=== PATIENT | female | born 1985 | race Caucasian/White ===

== ENCOUNTER → 2017-04-10 12:35 | Outpatient (CLI) | payer SELFPAY | PROVIDERS: Visit Provider Otolaryngology Otolaryngology/Facial Plastic Surgery | DX: Z01.812 Encounter for preprocedural laboratory examination (principal) ==

== ENCOUNTER 2017-05-09 00:15 | Emergency (ER) | payer BC, SELFPAY ==
[2017-05-09 00:15] VITALS: BP 155/99; PULSE 83; RESP 16; TEMP 36.1; O2SAT 100; BMI 26.4
--- NOTE | 2017-05-09 01:24 | EKG12_ITS ---
Test Reason : CP Blood Pressure : / mmHG Vent. Rate : 069 BPM Atrial Rate : 069 BPM P-R Int : 122 ms QRS Dur : 078 ms QT Int : 396 ms P-R-T Axes : 019 026 028 degrees QTc Int : 424 ms Normal sinus rhythm Normal ECG Confirmed by LAKESHIA GARCIA ([id number]), design editor DONA FRANCIS ([id number]) on 05/10/2017 2:51:55 PM Referred By: DONNA Confirmed By:LAKESHIA GARCIA
--- NOTE | 2017-05-09 01:24 | RAD_ITS ---
STUDY: X-RAY CHEST REASON FOR EXAM: Female, 31 years old. Epigastric and lower abdominal pain. Chest pain. TECHNIQUE: PA and lateral chest. COMPARISON: None. FINDINGS: The lungs are clear and expanded. There is no demonstrated pleural abnormality. Normal size heart. Normal mediastinum and netta. Normal visualized pulmonary arteries. Normal visualized aortic arch and descending thoracic aorta. Convex right lower thoracic curvature. Normal visualized ribs, clavicles, and shoulders. There is no demonstrated abnormality of the visualized soft tissue structures of the upper abdomen. RAD/Chest PA and Lateral IMPRESSION: No acute cardiopulmonary disease. Convex right thoracic curvature. Electronically Signed: Gilbert Toure MD at 2:32 EST , Service support ,
--- NOTE | 2017-05-09 01:38 | NURSING ---
NO OLD EKG'S IN MUSE
[2017-05-09] MEDS: Acetaminophen 500 MG Tablet 1000 MG PO (02:07)
[2017-05-09 02:17] LABS: Internal QC Validated? YES +Cl - CLEAR BKGD; Pregnancy, Urine Negative Negative
--- NOTE | 2017-05-09 02:36 | ED.VISSUMM ---
- ER Visit Summary Date of Service: 05/09/17 Chief Complaint: Chest pain History of Present Illness: The patient is a 31 F intermittent chest pain over the past 2 days. No radicular symptoms. No dyspnea. States recovering from a upper respiratory infection with mild cough. No fevers no chills. Also states that upper abdominal pain for the past 2-3 weeks. Sometimes pain worse with food. Currently pain resolved. No nausea, vomiting, diarrhea. No urinary symptoms. Last menstrual period was on the third. Denies any NSAID therapy. No recent travel, surgeries, or immobilizations. No history of PE or DVT. Physical Examination: General: Alert and oriented ?3, no acute distress HEENT: Normocephalic, atraumatic. Moist mucosa membranes Neck: supple, nontender. Cardiovascular: Regular rate and rhythm, no murmurs Respiratory: Normal breath sounds, symmetric, no distress Abdomen: Soft, nontender, nondistended. Negative Maldonado's or McBurney's tenderness. Extremities: Nontender, no edema, pulses intact ?4 Neuro: no focal neurological deficits. Test Results: EKG: Sinus rate of [address] or T-wave changes. Chest x-ray negative hCG negative Emergency Department Course and Treatment: Patient nontoxic, currently no abdominal pain. HCG was negative. With her chest complaints EKG obtained was normal. Chest x-ray negative. PERC criteria negative. She was given Tylenol, reevaluation symptoms were improving. Discussed atypical symptoms this time. She use Tylenol as needed. She will monitor symptoms and follow-up with her PCP. She return if any worsening symptoms. Treatment Plan: [] Disposition: Discharge Impression: 1. Atypical chest pain 2. Nonspecific abdominal pain - resolved This note was generated with [employer]ensor[employer] dictation software. It may contain incorrect words, spelling, and punctuation that were not noted in review of the chart prior to signing ED Disposition - Plan for ED Patient: Disposition: Home or Assisted Living Chief Complaint: Abd Pain Diagnosis: Atypical chest pain, Nonspecific abdominal pain Instructions: ED Chest Pain Atypical Unkn Cause, Abdominal Pain Referrals: Care Physician,No Primary [Primary Care Provider] - Nyasia Jane [NON-STAFF] - 3-5 Days if not improving
[2017-05-09 02:52] VITALS: BP 154/87; PULSE 78; RESP 16; O2SAT 99
== END 2017-05-09 02:53 | disposition home or self-care (01) ==
PROVIDERS: Emergency Provider Emergency Medicine
DX: R07.89 Other chest pain (principal); R10.10 Upper abdominal pain, unspecified; R05 Cough
CPT/HCPCS: 71046; 81025; 93005; 99283

== ENCOUNTER 2017-08-30 10:13 | Day surgery (SDC) | payer BC, SELFPAY ==
[2017-08-30] VITALS (8 sets, daily range): BP systolic 102–121; BP diastolic 67–87; PULSE 66–81; RESP 16–18; TEMP 36.2–36.7; O2SAT 94–100; BMI 27.5
[2017-08-30 10:35] LABS: Internal QC Validated? YES +Cl - CLEAR BKGD; Pregnancy, Urine Negative Negative
--- NOTE | 2017-08-30 11:45 | SEP_PTH ---
PATIENT: VICK WHALEY LOC: [facility] [place] U#:[id number] AGE/SX: 31/F ROOM: RE08/30/[address]: Amrit Rueda MD : [id number] BED: DIS: 08/30/2017 SPEC #: [id number] RECD: 08/30/17 13:19 STATUS: MINO DAYSI #: [id number] FRAN: 08/30/17 11:[address]: Amrit Rueda DEPT: SURGICAL PATHOLOGY RECD BY: Kristofer Higgins ENTERED: 08/30/17 13:25 SP TYPE: SEPTUM OTHR DR: Dr. Pari Winters MD Tissues: Nasal septum, NOS Procedures: Decalcification bone/plaque Surgery Specimen Level III HEADER OPERATION: Septoplasty, resect/outfracture turbinates PRE-OP DIAGNOSIS: Nasal congestion, deviated nasal septum, hypertrophy of nasal turbinates TISSUE SUBMITTED: Septal cartilage and bone spur MICROSCOPIC DIAGNOSIS Septal cartilage and bone spur: Fragments of cartilage and bone, clinically deviated nasal septum. LYNNE:arthur 09/05/17 MICROSCOPIC DESCRIPTION Slides are reviewed. GROSS DESCRIPTION Received in fixative is one container labeled with the patient's name and designated septal cartilage and bone spur. The specimen consists of multiple fragments of cartilage and bone that in aggregate measure 3 x 2.5 x 0.3 cm. The entire specimen is submitted in one cassette after decalcification. / LYNNE:arthur 08/30/17 TC:5 [facility]: [id number], [id number]
[2017-08-30] MEDS: Neomycin/Bacitracin/Polymyxin Ointment 1 APPLIC (12:00)
[2017-08-30] MEDS: Mixture 30 ML Bottle TOPICAL (12:00)
[2017-08-30] MEDS: Oxymetazoline 0.05% 1 SPRAY SPRAY.BTL 15 SPRAY (12:00)
--- NOTE | 2017-08-30 12:27 | PCM.DC ---
You will use the following diet at home:: No restrictions Discharge Activity: Return to Normal Activity - Head of bed elevation. Do not blow nose but may sniff saline and clear as much as desired. Also can use Afrin 12 hour spray (oxymetazoline spray from hospital) if any oozing noted or to reduce congestion. Allergies/Adverse Reactions: Allergies No Known Allergies Allergy (Verified 05/09/17 00:18) Medications to take at Discharge NK [NK] 03/09/17 Primary Care Physician: Pari Winters MD [Primary Care Provider] - Please Follow Up With: Amrit Rueda MD - can to make appointment for September 11 or for nasal splint removal. [phone]
--- NOTE | 2017-08-30 13:43 | OP.PCM_ITS ---
Operative Report Date of Procedure: 08/30/17 Preoperative diagnosis: Nasal airway obstruction secondary to septal deviation and turbinate hypertrophy Postoperative diagnosis: Same Procedure: Nasal septoplasty, therapeutic outfracture and subsequent submucosal cautery of inferior turbinates using Reynaldo bipolar probe Anesthesia: General endotracheal per Adrianna Simental CRNA Details of procedure: Patient was transported to the operating room and placed on the OR table in supine position. After the administration of adequate general endotracheal anesthesia the patient was appropriately positioned eyes were treated and taped closed. A head drape was applied but did not cover the eye caro. Nasal cavity was inspected. Turbinates were hypertrophic but quickly diminished with topical decongestant applied to cottonoid pledgets. A Brendan-Synephrine Xylocaine mixture was used initially followed by just oxymetazoline. Having accomplished vasoconstriction and decongestion of the turbinates one could better evaluate the septal problem. The anterior septum was relatively straight but at the chondro-osseous junction there was a huge spur that deflected to the left side and was in constant contact with the middle turbinate in spite of the decongestion. 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 1% Xylocaine with epinephrine 1-100,000 was used to infiltrate the soft tissues overlying the quadrangular cartilage on the left side and also to vasoconstrict and elevate the soft tissue from the bony aspect of the septum posteriorly. After allowing adequate time for vasoconstrictive effects to take place, #15 scalpel was used to make a right hemitransfixion incision starting on the right anterior septum, elevating the soft tissues in the subperichondrial plane along the left side of the quadrangular cartilage. The tunnel was carried posteriorly to elevate the soft tissues over the left perpendicular plate of the ethmoid and the vomer inferiorly. Just anterior to the chondro-osseous junction the Benld elevator was used to make a posterior incision allowing the tunnel to be elevated on the right side of the bony septum. Having skeletonized the posterior aspect of the septum, double-action scissors were used to make multiple cuts so that the bony spur could be removed in pieces utilizing Rakesh forceps. No apparent tears occurred in the mucosal flaps and one was intentionally made then posteriorly, to allow egress of any serosanguineous fluid postoperatively. Once the soft tissue flaps were repositioned, it was evident that the septum was straight posteriorly and no longer was the middle turbinate in contact with the septal spur. The hemitransfixion incision was closed with 2 sutures of 4-0 chromic. Each inferior turbinate was then laterally outfractured into the inferior meatus and treated with the Reynaldo bipolar probe. The bipolar was placed into the anterior aspect of the inferior turbinate, current was applied, and once blanching was evident, the probe was advanced the length of the turbinate accomplishing submucosal cautery in the inferomedial aspect. Posterior tips received additional cautery with benefit of the 0? endoscope for guidance. Thereafter Villegas airway splints were placed, first coated with Neosporin ointment, and after placement secured with a single suture of 3-0 Ethilon. Nasal drip pad was applied and the procedure terminated. The patient tolerated the procedure well, did not sustain any intraoperative anesthetic or surgical complication, was extubated in the operating room and taken to the PACU where she was noted to be in satisfactory condition. Amrit Rueda MD
[2017-08-30] MEDS: HYDROcodone Bitartrate/Apap 5/325 Tablet PO (14:27)
== END 2017-08-30 14:42 | disposition home or self-care (01) ==
LOC: SDC 10:13 → AC 10:14
PROVIDERS: Anesthesiology; Family Provider Family Medicine; PCP Family Medicine; Visit Provider Otolaryngology Otolaryngology/Facial Plastic Surgery
PROC: (CPT 30520; principal; 2017-08-30 11:30)
DX: J34.2 Deviated nasal septum (principal); J34.3 Hypertrophy of nasal turbinates; R09.81 Nasal congestion
CPT/HCPCS: 00160; 30140; 30520; 81025; 88304; 88311; J7120; J2405

== ENCOUNTER → 2017-12-06 12:43 | Outpatient (CLI) | payer BC, SELFPAY ==
[2017-12-09 15:07] LABS: Clam <0.10 kU/L (Class 0); Codfish <0.10 kU/L (Class 0); Corn <0.10 kU/L (Class 0); Egg, White <0.10 kU/L (Class 0); Garlic <0.10 kU/L (Class 0); Gluten <0.10 kU/L (Class 0); Milk (Cow) <0.10 kU/L (Class 0); Peanut <0.10 kU/L (Class 0); SCALLOP <0.10 kU/L (Class 0); SESAME SEED <0.10 kU/L (Class 0); Shrimp <0.10 kU/L (Class 0); Soybean <0.10 kU/L (Class 0); Tomato <0.10 kU/L (Class 0); Walnut, (Food) <0.10 kU/L (Class 0); Wheat <0.10 kU/L (Class 0); Yeast <0.10 kU/L (Class 0)
[2017-12-10 09:04] LABS: Onion <0.10 kU/L (Class 0)
== END ==
PROVIDERS: Family Provider Family Medicine; PCP Family Medicine; Visit Provider Otolaryngology Otolaryngology/Facial Plastic Surgery
DX: T78.40XA Allergy, unspecified, initial encounter (principal)
CPT/HCPCS: 36415; 86003

== ENCOUNTER → 2018-04-16 13:18 | Outpatient (CLI) | payer BC, SELFPAY ==
--- NOTE | 2018-04-16 13:21 | CT_ITS ---
STUDY: CT BRAIN WITHOUT CONTRAST REASON FOR EXAM: Female, 32 years old. Headaches. RADIATION DOSAGE (If Supplied By Facility): CTDIvol = ( 44.99 ) mGy, DLP = ( 745.49 ) mGycm TECHNIQUE: Transaxial CT imaging of the brain was performed without administration of intravenous contrast material. Individualized dose optimization techniques were used for this CT. COMPARISON: None. FINDINGS: Normal soft tissue structures. Normal calvarium. Normal size ventricles and extra-axial spaces for the patient's age. Normal white matter tracts of the cerebral hemispheres. Normal basal ganglia and thalami. Normal brainstem. Normal cerebellum. There is no intracranial hemorrhage. There are no findings of an acute ischemic infarction. There is opacification of the left frontal sinuses associated with partial opacification of the ethmoid, sphenoid and visualized maxillary sinuses. CT/Brain/Head without Contrast IMPRESSION: Opacification of the left frontal sinus associated with partial opacification of the ethmoid, sphenoid and visualized maxillary sinuses consistent with a history of sinusitis. Electronically Signed: Tg Aguilera MD at 21:41 EST Tel , Service support ,
== END ==
PROVIDERS: Family Provider Family Medicine; PCP Family Medicine; Referring Provider Psychiatry & Neurology Neurology; Visit Provider Psychiatry & Neurology Neurology
DX: R51 Headache (principal)
CPT/HCPCS: 70450

== ENCOUNTER → 2018-07-26 | Outpatient (CLI) | payer BC, SELFPAY ==
[2018-07-26 15:39] LABS: Absolute Lymphocyte Count 1.69 X10^3/ul (0.83-4.51); Absolute Neutrophil Count 3.2 X10^3/uL (2.0-7.7); Basophil# 0.02 X10^3/uL; Basophil% 0.3 % (0-1); Eosinophil# 0.31 X10^3/uL; Eosinophils% 5.3 % (0-5); Hematocrit 40.4 % (37-47); Hemoglobin 13.3 g/dl (12.0-15.0); Lymphocyte # 1.69 X10^3/ul (4.0); Mean Corp Hgb Conc 32.9 g/gl (32-36); Mean Corpuscular Hgb 30.4 pg (27.0-32.0); Mean Corpuscular Volume 92.4 fL (81-99); Mean Platelet Vol. 11.3 fl (6.2-12.0); Monocyte# 0.63 X10^3/uL; Monocyte% 10.8 % (0-10); Neutrophil # 3.16 X10^3/uL (2.7-7.7); Neutrophil % 54.4 % (47-70); Platelet Count 212 K/mm3 (150-450); RBC Distribution Width CV 12.6 % (11.6-14.6); RBC Distribution Width SD 41.6 fl (35.1-43.9); Red Blood Count 4.37 M/mm3 (4.2-5.4); White Blood Count 5.8 K/mm3 (4.4-11.0)
[2018-07-26 15:44] LABS: POSITIVE COUNT NO; POSITIVE DIFFERENTIAL NO; POSITIVE MORPHOLOGY NO
== END | disposition home or self-care (01) ==
LOC: BFHLAB 14:13
PROVIDERS: Family Provider Family Medicine; PCP Family Medicine; Visit Provider Family Medicine
DX: R10.32 Left lower quadrant pain (principal)
CPT/HCPCS: 36415; 85025

== ENCOUNTER 2021-06-03 16:50 | Outpatient (CLI) | payer OTHER, SELFPAY | END 2021-06-03 23:59 | disposition home or self-care (01) | PROVIDERS: PCP Family Medicine; Visit Provider Family Medicine | DX: Z20.828 Contact with and (suspected) exposure to other viral communicable diseases (principal) | CPT/HCPCS: 87635; U0003; U0005 ==

== ENCOUNTER → 2021-08-05 | Outpatient (CLI) | payer OTHER, SELFPAY ==
[2021-08-05 15:19] LABS: Absolute Lymphocyte Count 1.42 X10^3/uL (0.83-4.51); Absolute Neutrophil Count 2.9 X10^3/uL (2.0-7.7); Basophil# 0.03 X10^3/uL; Basophil% 0.6 % (0-1); Eosinophil# 0.14 X10^3/uL; Eosinophils% 2.8 % (0-5); Hematocrit 37.2 % (37-47); Hemoglobin 12.4 g/dL (12.0-15.0); Lymphocyte # 1.42 X10^3/ul (0.83-4.51); Lymphocyte % 28.7 % (19-41); Mean Corp Hgb Conc 33.3 g/dL (32-36); Mean Corpuscular Hgb 30.8 pg (27.0-32.0); Mean Corpuscular Volume 92.3 fL (81-99); Monocyte# 0.49 X10^3/uL; Monocyte% 9.9 % (0-10); NRBC Flagged by Analyzer 0 % (0-5); Neutrophil # 2.85 X10^3/uL (2.7-7.7); Neutrophil % 57.8 % (47-70); Platelet Count 256 K/mm3 (150-450); RBC Distribution Width CV 12.8 % (11.6-14.6); RBC Distribution Width SD 43.8 fl (35.1-43.9); Red Blood Count 4.03 M/mm3 (4.2-5.4); White Blood Count 4.9 K/mm3 (4.4-11.0)
[2021-08-05 15:43] LABS: ALB/GLOB Ratio 0.9 RATIO (0.9-2.4); AST(SGOT) 11 U/L (15-37); Alanine Aminotransfer ALT/SGPT 20 U/L (13-56); Albumin, Serum 3.7 g/dL (3.2-5.0); Alkaline Phosphatase 54 U/L (45-117); Anion Gap 5 (5-15); BUN 11 mg/dL (7-18); BUN/Creat Ratio 14.5 RATIO (10-20); Calcium,Total 8.7 mg/dL (8.5-10.1); Chloride 107 mmol/L (98-107); Creatinine, Serum 0.76 mg/dL (0.55-1.02); EST Glomerular Filtration Rate 93 mL/min (>60); Est Glom Filt Rate - Afr Amer 113 mL/min (>60); Globulin 3.9 g/dL (2.2-4.2); Glucose 86 mg/dL (74-106); Potassium 3.6 mmol/L (3.5-5.1); Protein, Total 7.6 g/dL (6.4-8.2); Sodium Level 138 mmol/L (136-145); T4 Free Direct 0.87 ng/dL (0.76-1.46); Thyroid Stim Hormone (TSH) 0.99 uIU/mL (0.358-3.74)
[2021-08-10 07:08] LABS: Thyroid Stim Immunoglob <0.10 IU/L (0.00-0.55)
[2021-08-10 10:36] LABS: Anti-Thyroglobulin AB < 1.0 IU/mL (0.0-0.9); Thyroglobulin, Serum Qt. 6.1 ng/mL (1.5-38.5); Thyroid Peroxidase AB < 8 IU/mL (0-34)
== END | disposition home or self-care (01) ==
LOC: MFPLAB 12:05
PROVIDERS: PCP Family Medicine; Referring Provider Family Medicine; Visit Provider Family Medicine
DX: E01.0 Iodine-deficiency related diffuse (endemic) goiter (principal)
CPT/HCPCS: 80053; 84432; 84439; 84443; 84445; 85025; 86376; 86800

== ENCOUNTER → 2021-08-11 | Outpatient (CLI) | payer OTHER, SELFPAY ==
--- NOTE | 2021-08-11 12:04 | US_ITS ---
STUDY: THYROID ULTRASOUND REASON FOR EXAM: Female, 35 years old. THYROMEGALY TECHNIQUE: Ultrasound evaluation of the thyroid was performed with real-time and static guerin-scale imaging. COMPARISON: None. FINDINGS: RIGHT LOBE: The right lobe of the thyroid gland measures 4.4 x 1.1 x 1.2 cm. There is a homogeneous echotexture. There are no demonstrated solid, cystic or complex lesions. LEFT LOBE: The left lobe of the thyroid gland measures 3.4 x 1.3 x 0.8 cm. There is a homogeneous echotexture. There are no demonstrated solid, cystic or complex lesions. ISTHMUS: The isthmus measures 2.0 mm. The regional lymph nodes are normal, including adjacent to both thyroid lobes (versus parathyroid glands). US/Thyroid IMPRESSION: No solid or cystic thyroid nodule. Electronically Signed: Sean Snow MD ([place]oks) at 16:24 EDT ,
== END | disposition home or self-care (01) ==
PROVIDERS: PCP Family Medicine; Referring Provider Family Medicine; Visit Provider Family Medicine
DX: E01.0 Iodine-deficiency related diffuse (endemic) goiter (principal)
CPT/HCPCS: 76536

== ENCOUNTER → 2021-11-25 | Outpatient (CLI) | payer OTHER, SELFPAY ==
[2021-11-30 16:42] LABS: HPV APTIMA, High Risk Negative (Negative); HPV Reflexed? YES, CHARGE PATIENT
== END | disposition home or self-care (01) ==
LOC: LABSPEC 11:51
PROVIDERS: PCP Family Medicine; Referring Provider Nurse Practitioner Family; Visit Provider Nurse Practitioner Family
DX: Z12.4 Encounter for screening for malignant neoplasm of cervix (principal)
CPT/HCPCS: 87624; 88175; G0145

== ENCOUNTER → 2023-01-05 | Outpatient (CLI) | payer BC, SELFPAY ==
[2023-01-05 16:56] LABS: Internal QC Validated? YES +Cl - CLEAR BKGD
[2023-01-05 16:57] LABS: Pregnancy, Serum, hCG Quali. POSITIVE Negative
== END | disposition home or self-care (01) ==
LOC: MFPLAB 14:06
PROVIDERS: PCP Family Medicine; Visit Provider Family Medicine
DX: N92.6 Irregular menstruation, unspecified (principal)
CPT/HCPCS: 36415; 84703

== ENCOUNTER 2023-09-14 07:08 | Day surgery (SDC) | payer BC, SELFPAY ==
--- NOTE | 2023-09-03 17:31 | PCM.HP.BLA ---
History and Physical Date of Admission: 09/14/23 HPI: The patient is a 37 year old female presenting for pre-operative visit. She is scheduled for tubal sterilization, for sterilization on 09/14/23. Procedure discussed along with risks, benefits and complications. Other alternatives discussed for management. Consent form signed? Yes. PAST MEDICAL HISTORY PAST MEDICAL HISTORY Diagnosis Date ? Migraines ? Seasonal allergies enviromental allergies PAST SURGICAL HISTORY PAST SURGICAL HISTORY Procedure Laterality Date ? NOSE SURGERY HX CURRENT MEDICATIONS Current Outpatient Medications Medication Sig Dispense Refill ? SUMAtriptan (IMITREX) 50 mg tablet Take 50 mg by mouth as needed for migraine headache (see administration instructions). May repeat dose after 2 hours if needed. Maximum daily dose is 200 mg per day. No current facility-administered medications for this visit. ALLERGIES: Patient has no known allergies. PERSONAL HISTORY: SOCIAL HISTORY Social History Tobacco Use ? Smoking status: Never ? Smokeless tobacco: Never ? Tobacco comments: Passive Vaping Use ? Vaping Use: Never used Substance Use Topics ? Alcohol use: Yes Comment: occasional ? Drug use: Never FAMILY HISTORY: FAMILY HISTORY FAMILY HISTORY Problem Relation Age of Onset ? Stroke Mother ? Hypertension Mother ? Aneurysm Mother ? Hypertension Father ? Diabetes Father ? Thyroid Sister ? Stroke Maternal Grandmother REVIEW OF SYMPTOMS: GENERAL: denies fevers or chills ENDOCRINOLOGY: has not been on steroids Cardiology : denies palpitations or chest pain Respiratory: denies SOB or cough Hematology: denies history of prolonged bleeding or easy bruising or VTE Allergy: Denies history of personal or family history of allergy to anesthesia PHYSICAL EXAMINATION: VITALS: Blood pressure 112/68, pulse 81, resp. rate 16, height 152.4 cm (5'), weight 67.1 kg (148 lb), last menstrual period 08/08/2023, SpO2 99%. GENERAL: The patient is well nourished, well hydrated in no acute distress. , The patient is oriented to time, place, and person. NECK: Supple. No lynphadenopathy, normal thyroid, no thyromegaly. LUNGS: Clear to auscultation bilaterally. no wheezes, rhonchi or rales HEART: Regular rate and rhythm, Normal heart sounds, and No murmurs or gallops IMPRESSION: sterilization request PLAN: The risks/benefits/alternatives and personal involved for the planned tubal sterilization (likely bilateral salpingectomy unless anatomy prohibits it being safely performed, then Viki clips) were reviewed with the patient. Her questions were answered to her satisfaction and she desires to proceed. Consent was signed. I reviewed with her postop instructions and expectations. I have reviewed and updated past medical and surgical history, medications and allergies Assessment & Plan Assessment/Plan (1) Sterilization:
[2023-09-10 12:48] LABS: Hematocrit 37.7 % (37-47); Hemoglobin 12.3 g/dL (12.0-15.0); Mean Corp Hgb Conc 32.6 g/dL (32-36); Mean Corpuscular Hgb 30.6 pg (27.0-32.0); Mean Corpuscular Volume 93.8 fL (81-99); Mean Platelet Vol. 10.6 fl (6.2-12.0); Platelet Count 239 K/mm3 (150-450); RBC Distribution Width CV 12.6 % (11.6-14.6); RBC Distribution Width SD 43.4 fl (35.1-43.9); Red Blood Count 4.02 M/mm3 (4.2-5.4); White Blood Count 5.1 K/mm3 (4.4-11.0)
[2023-09-14] VITALS (12 sets, daily range): BP systolic 85–116; BP diastolic 45–74; PULSE 62–82; RESP 16–20; TEMP 36.1–36.9; O2SAT 96–100; BMI 28.4
[2023-09-14 07:34] LABS: Internal QC Validated? YES +Cl - CLEAR BKGD; Pregnancy, Urine Negative Negative; Record Kit Lot#,Urine Preg HCG0000772476
--- NOTE | 2023-09-14 07:44 | PCM.PRE.AN2 ---
ASA Classification* ASA Classification ASA Classification: 2 Assessment & Plan Anesthesia* Anesthesia Assessment Anesthesia Assessment: Discussed sedation and/or anesthesia options, risks, benefits, and alternatives with patient/parents/legal guardian/POA. Questions invited. The patient/parents/legal guardian/POA seems to understand and agrees to proceed with anesthesia plan. Reviewed the physical assessment, medical history, allergy history and patient home medications list prior to surgery/procedure/anesthetic and documented any changes. Performed airway and anesthesia risk assessments. Anesthesia Type Anesthesia Type: General (see written pre anesthesia record for full assessment) Anesthesia Focused Assessment* Airway Assessment Mouth opens: >3 cm Mallampati Score: II Focused Labs Anesthesia Preop lab: CBC WBC 5.1 K/mm3 (4.4-11.0) 09/10/23 12:06 RBC 4.02 M/mm3 (4.2-5.4) L 09/10/23 12:06 Hgb 12.3 g/dL (12.0-15.0) 09/10/23 12:06 Hct 37.7 % (37-47) 09/10/23 12:06 Plt Count 239 K/mm3 (150-450) 09/10/23 12:06 CHEMISTRY Potassium 3.6 mmol/L (3.5-5.1) 08/05/21 12:05 Sodium 138 mmol/L (136-145) 08/05/21 12:05 BUN 11 mg/dL (7-18) 08/05/21 12:05 Creatinine 0.76 mg/dL (0.55-1.02) 08/05/21 12:05 Glucose 86 mg/dL (74-106) 08/05/21 12:05 TSH 0.99 uIU/mL (0.358-3.74) 08/05/21 12:05 COAG Urine Test Negative Negative 09/14/23 07:20 Pre-Assessment Diagnosis/Proposed Procedure Planned Operative Procedure(s): (B) Laparoscopic, bilateral Salpingectomy Anesthesia History Anesthesia History - director of compliance: Anesthesia History - director of compliance Hx Hospitalization No 09/07/23 14:09 Any Problems With Anesthesia No 09/07/23 14:09 Cholinesterase deficiency No 09/07/23 14:09 You/Your Family Experience No 09/07/23 14:09 fever (hyperthermia) with Relationship Recent Exposure to Contagious No 08/30/17 10:34 Disease Does patient have nerve No 09/07/23 14:09 stimulator Patient instructed to have device shut off --Does patient have Pacemaker or ICD? When Was Last Pacemaker Check QUESTION #4 FULL TEXT: You/Your Family Experience fever (hyperthermia) with Anesthesia Last Oral Intake Last Oral intake: Last Oral Intake NPO since Meds taken in AM with sips of water? Meds patient instructed to take am of surgery PONV PONV - director of compliance: PONV - director of compliance Female Yes 09/07/23 14:09 HX of Motion Sickness No 09/07/23 14:09 HX of N/V After Surgery No 09/07/23 14:09 Non-Smoker Yes 09/07/23 14:09 Duration of Surgery greater Yes 09/07/23 14:09 than 60 minutes Number of Risk Factors 3 09/07/23 14:09 PONV Score Moderate Risk 09/07/23 14:09 Respiratory Assessment Respiratory Assessment - director of compliance: Respiratory Tract Infection Hx - director of compliance Hx Respiratory Tract Infection No 09/07/23 14:09 STOP Sleep Apnea STOP Sleep Apnea - director of compliance: STOP Sleep Apnea - director of compliance Hx Hypertension No 09/07/23 14:09 Hx Sleep Apnea No 09/07/23 14:09 CPAP BIPAP Do you snore loudly (louder No 09/07/23 14:09 than talking or can be heard Do you often feel tired/ No 09/07/23 14:09 fatigued/ sleepy during daytime? Has anyone observed you stop No 09/07/23 14:09 breathing during sleep? STOP Results Negative 09/07/23 14:09 QUESTION #5 FULL TEXT : Do you snore loudly (louder than talking or can be heard through closed doors)? Tobacco Use History Tobacco Use History - director of compliance: Tobacco Use History - director of compliance Tobacco Use Smoking Status Never smoker 09/07/23 14:09 Hx Tobacco Use No 09/07/23 14:09 Years Smoking Packs Smoked per Day Smoking Cessation Date was within the last 15 years Hx Smoking Cessation Date Hx Smoking Cessation Counseling Hematologic Medial History Hematologic Hx - director of compliance: Hematologic Medical Hx - acid leveler Hx of Blood Transfusion No 09/07/23 14:09 Hx of Transfusion in last 3 No 09/07/23 14:09 Months Date of Last Transfusion (if within last 3 months) Ever experience any problems No 09/07/23 14:09 with transfusion(s)? Specify any problems Hx of Preganancy in last 3 No 09/07/23 14:09 Months Nurse Filling Out Transfusion MGRIFFITH 09/07/23 14:09 & Questions: Date: 09/07/23 09/07/23 14:09 Time: 14:10 09/07/23 14:09 Patient unable to answer at this time (ie. confused, unrespo /Reproduction History /Reproductive History - director of compliance: /Reproductive Hx- director of compliance Hx Now No 09/07/23 14:09 Gestational Age (in weeks): EDC: Hx Hx Para Hx Section SAB No 09/07/23 14:09 Active Medications Active Medications: Current Medications Generic Name Dose Route Start Last Admin Trade Name Freq PRN Reason Stop Dose Admin Acetaminophen 1,000 mg 09/14/23 08:30 Acetaminophen 500 Mg Tablet PO 09/14/23 08:31 X1 ONE Celecoxib 200 mg 09/14/23 08:30 Celecoxib 200 Mg Capsule PO 09/14/23 08:31 X1 ONE Lactated Ringer's 1,000 mls @ 15 mls/hr 09/14/23 07:15 IV .Q48H SIMEON PFSH Medical History Migraine headache Non-smoker Home Medications ?Medication ?Instructions ?Recorded ?Last Taken ?Type multivitamin 1 tab PO DAILY 09/07/23 Unknown History sumatriptan succinate 50 mg tablet 50 mg PO DAILY PRN PRN headache 09/07/23 Unknown History Allergy/AdvReac Type Severity Reaction Status Date / Time No Known Allergies Allergy Verified 09/14/23 07:38 Surgical History History of sinus surgery Social History Smoking Status: Never smoker Review of Systems (Anesthesia) ROS Narrative System reviewed and no additional complaints, except as documented.
[2023-09-14] MEDS: Lactated Ringers 1,000 ML 15 ML IV ×2 (07:48→10:12)
[2023-09-14] MEDS: Celecoxib 200 MG Capsule PO (07:49)
[2023-09-14] MEDS: Acetaminophen 500 MG Tablet 1000 MG PO (07:49)
--- NOTE | 2023-09-14 08:27 | DCINST_ITS ---
Discharge Instructions Diet Discharge Diet: No restrictions Activity May resume sexual activity in: 1 week Dressing / Incision Call your doctor if your incision/area has: Sudden Increased Bleeding and Foul Smelling Discharge Call your doctor if you observe: Fever of 101 or Higher Cleanse incision/area with: Soap & Water (Your incisions have skin glue and it can get wet. Leave on until it falls off) Follow Up Care Please Follow Up With: Raisa Minor MD When: You do not have to have a postop visit. Call [phone] or send a [email or web address] message with questions or concerns. Test Results: Test results from this visit will be discussed in further detail at your follow- up appointment, if applicable. Discharge Plan Admission Primary Reason for Your Visit: Bilateral salpingectomy (removal of fallopian tubes) Attending Provider: Raisa Minor Primary Care Provider: Live Hair Instructions Print Language: [place] Discharge Orders/Prescriptions Prescriptions: New ibuprofen 600 mg tablet 600 mg PO Q6H PRN (Reason: Pain) 30 Days Qty: 60 0RF oxycodone 5 mg tablet 5 mg PO Q8H PRN (Reason: severe pain) 5 Days Qty: 5 0RF Continued sumatriptan succinate 50 mg tablet 50 mg PO DAILY PRN PRN (Reason: headache) multivitamin Tablet 1 tab PO DAILY Referrals / Follow Up: Live Hair MD [Primary Care Provider] - Disposition Disposition (needs filled in before D/C Order can be placed): Home, Self Care
--- NOTE | 2023-09-14 08:28 | PCM.OPRPT ---
Problems Associated Problem List Diagnoses (1) Sterilization: Report of Operation Date of Procedure: 09/14/23 Pre-Operative Diagnosis: sterilization request Post-Operative Diagnosis: same Surgery/Procedure Performed:: Laparoscopic bilateral salpingectomy Description of Surgical Findings:: Normal cervix, uterus, tubes and ovaries Surgeon: Raisa Minor director of sustainable design: None Type of Anesthesia: General Anesthesiologist: Allison Le Special Medications: none Specimen's removed: bilateral fallopian tubes Drains: none Estimated Blood Loss (mL): 5 Fluids Replaced: 600 Description of Procedure: The patient was taken to the operating room where she was prepped and draped in the dorsolithotomy position. A weighted speculum was placed in the vagina and the anterior lip of the cervix was grasped with a tenaculum. The [employer] uterine manipulator was placed and the remainder of the instruments were removed from the vagina. Attention was turned to the abdomen. All port sites were infiltrated with 0.5% Marcaine before skin incisions were made. A 5 mm intraumbilical incision was made. The anterior abdominal wall was tented up with 2 towel clamps while a 5 mm blade less trocar and sleeve were directly inserted. Intraperitoneal placement was confirmed with the laparoscope. The pneumoperitoneum was created and the underlying abdominal contents were intact. The patient was placed in Trendelenburg. Right and left lower quadrant ports were placed under direct visualization lateral to the inferior epigastric vessels. The bowel was swept away and the above findings were noted. The LigaSure device was used to clamp seal and transect the antimesenteric portions of the right tube to the cornual insertion of the uterus. The tube was amputated from the uterus and the pedicles were all confirmed to be hemostatic. The same procedure was performed on the contralateral side. The specimens were brought out through a 5 mm port. The pedicles were again examined and found to be hemostatic. The lateral ports were removed under direct visualization and no active bleeding was noted. The pneumoperitoneum was released. The skin incisions were closed with Monocryl suture in a subcuticular fashion and skin glue by me. The vaginal instruments were removed and the vaginal sweep was completed by me. The entire procedure was performed by me with assistance. All sponge and needle counts were correct and the patient was taken to the recovery room in stable condition. Grafts/Implants Used: none Procedure Start Time: 08:41 Procedure Stop Time: 08:59 Complications none Admit VTE Documentation VTE Present on Admission: No VTE Mechan Device Prophylaxis: SCD's VTE Pharm Prophylaxis ordered?: No Reason prophylaxis not ordered:: Procedure Not Indicated
--- NOTE | 2023-09-14 08:30 | FALS_PTH ---
PATIENT: VICK WHALEY LOC: [facility] [place] U#:[id number] AGE/SX: 37/F ROOM: RE09/14/[address]: Dr. Raisa Minor MD : [id number] BED: DIS: 09/14/2023 SPEC #: [id number] RECD: 09/14/23 10:05 STATUS: MINO RESandrine #: [id number] FRAN: 09/14/23 08:[address]: Raisa Minor DEPT: SURGICAL PATHOLOGY RECD BY: Ruth Ann Andre ENTERED: 09/14/23 11:55 SP TYPE: FALL TUBES OTHR DR: Dr. Live Hair MD Tissues: Fallopian tube Procedures: Surgery Specimen Level II HEADER OPERATION: Laparoscopic, bilateral salpingectomy PRE-OP DIAGNOSIS: Sterilization TISSUE SUBMITTED: Bilateral fallopian tubes MICROSCOPIC DIAGNOSIS Bilateral fallopian tubes, salpingectomy: Bilateral fallopian tubes, no pathologic diagnosis. Bilateral paratubal cysts. SJ: 09/17/2023 MICROSCOPIC DESCRIPTION Slides are reviewed. GROSS DESCRIPTION Received in fixative is one container labeled with the patient's name and designated bilateral fallopian tubes. The specimen consists of bilateral fallopian tubes including fimbrial ends. One fallopian tube measuring 5.0 cm in length and 0.5 cm in diameter. Fimbral end is identified. A paratubal cyst is noted measuring 0.3cm in greatest dimension. The second fallopian tube is received in multiple pieces and measures 5.0cm in length and 0.4cm in diameter. Fimbral end is identified. A paratubal cyst is also noted measuring 0.8cm in greatest dimension. The fallopian tubes are not identified as right or left. Sections of both fallopian tubes reveal unremarkable cut surfaces. Valve Lapper sections are submitted in two cassettes. 1- fallopian tube received in multiple pieces and paratubal cyst, 2- fallopian tube and paratubal cyst / SJ: 09/14/2023 TC:5 CPT: 98899 x2
[2023-09-14] MEDS: Bupivacaine 0.25% 30 ML Vial (08:41)
--- NOTE | 2023-09-14 09:16 | PCM.POST.ANE ---
Anesthesia: Postop Eval I Current Vital Signs Temperature: 97.1 F Pulse Rate: 81 Blood Pressure: 103/57 Respiratory Rate: 20 Pulse Ox: 100 Oxygen Delivery Method: Room Air Assessment Airway patent: Yes Spontaneous unlabored respirations: Yes Mental status: Awake and Calm nausea: No Vomiting: No Anesthesia Complication: No Fluid Hydration Crystalloid volume administer (ml): 600 Total IV fluid infused: 600 Progress Note Anesthesia document: Postop Eval 1 completed: Yes
--- NOTE | 2023-09-14 11:49 | SUR.PHASEII ---
1140 pt became lightheaded upon removal of iv. cool cloth given and pt in supine position.
--- NOTE | 2023-09-14 12:15 | SUR.PHASEII ---
pt skin color wnl. was pale earlier. pt voiced feeling better since lightheaded episode earlier. b/p low. will recheck.
--- NOTE | 2023-09-14 12:26 | SUR.PHASEII ---
pt voiced readiness for discharge.
--- NOTE | 2023-09-14 16:27 | POSTOPAN2_ITS ---
Anesthesia Postop Eval I Sum Postop Eval Completion status Anesthesia document: Postop Eval 1 completed: Yes Anesthesia Postop Eval I Summary Anesthesia Postop Eval I Summary: Anesthesia Postop Eval I: Assessment Summary Airway patent Yes 09/14/23 09:17 ESTIMATOR PROJECT [email or web address] Spontaneous unlabored Yes 09/14/23 09:17 ESTIMATOR PROJECT [email or web address] respirations Mental status Awake,Calm 09/14/23 09:17 ESTIMATOR PROJECT [email or web address] nausea No 09/14/23 09:17 ESTIMATOR PROJECT [email or web address] Vomiting No 09/14/23 09:17 ESTIMATOR PROJECT [email or web address] Anesthesia Postop Eval I: Fluid Summary Crystalloid volume administer 600 09/14/23 09:17 ESTIMATOR PROJECT [email or web address] (ml) Colloids volume administered ( ml) Blood Product volume administered (ml) Total IV fluid infused 600 09/14/23 09:17 ESTIMATOR PROJECT [email or web address] Anesthesia Postop Eval I: Summary Notes Anesthesia Complication No 09/14/23 09:17 ESTIMATOR PROJECT [email or web address] Anesthesia Complication Comment: Post-operative progress note Anesthesia: Postop Eval II Evaluation Mental status: Awake and Calm Pain Level: 1 nausea: No Vomiting: No Complications Anesthesia Complication: No
--- NOTE | 2023-09-14 16:27 | PCM.POSTANE2 ---
Anesthesia Postop Eval I Sum Postop Eval Completion status Anesthesia document: Postop Eval 1 completed: Yes Anesthesia Postop Eval I Summary Anesthesia Postop Eval I Summary: Anesthesia Postop Eval I: Assessment Summary Airway patent Yes 09/14/23 09:17 LAMP TESTER AND [email or web address] Spontaneous unlabored Yes 09/14/23 09:17 LAMP TESTER AND INSPECTOR.JDEF respirations Mental status Awake,Calm 09/14/23 09:17 LAMP TESTER AND INSPECTOR.JDEF nausea No 09/14/23 09:17 LAMP TESTER AND INSPECTOR.JDEF Vomiting No 09/14/23 09:17 LAMP TESTER AND INSPECTOR.JDEF Anesthesia Postop Eval I: Fluid Summary Crystalloid volume administer 600 09/14/23 09:17 LAMP TESTER AND [email or web address].JDEF (ml) Colloids volume administered ( ml) Blood Product volume administered (ml) Total IV fluid infused 600 09/14/23 09:17 LAMP TESTER AND INSPECTOR.JDEF Anesthesia Postop Eval I: Summary Notes Anesthesia Complication No 09/14/23 09:17 LAMP TESTER AND INSPECTOR.JDEF Anesthesia Complication Comment: Post-operative progress note Anesthesia: Postop Eval II Evaluation Mental status: Awake and Calm Pain Level: 1 nausea: No Vomiting: No Complications Anesthesia Complication: No
== END 2023-09-14 12:27 | disposition home or self-care (01) ==
LOC: SDC 07:11 → AC 07:11
PROVIDERS: PCP Family Medicine; Referring Provider Obstetrics & Gynecology; Visit Provider Obstetrics & Gynecology
PROC: (CPT 58661; principal; 2023-09-14 08:15)
DX: Z30.2 Encounter for sterilization (principal); N83.8 Other noninflammatory disorders of ovary, fallopian tube and broad ligament
CPT/HCPCS: 58661; 00840; 36415; 81025; 85027; 88302; J7120; C1760; J2405

== ENCOUNTER → 2024-10-23 | Outpatient (CLI) | payer BC, SELFPAY ==
[2024-10-23 12:29] LABS: Hematocrit 38.0 % (37-47); Hemoglobin 12.7 g/dL (12.0-15.0); Immature Granulocytes Count 0.030 X10^3/uL (0.0-0.0); Mean Corp Hgb Conc 33.4 g/dL (32-36); Mean Corpuscular Volume 92.9 fL (81-99); Mean Platelet Vol. 11.0 fl (6.2-12.0); NRBC Flagged by Analyzer 0 % (0-5); Platelet Count 235 K/mm3 (150-450); RBC Distribution Width CV 12.5 % (11.6-14.6); RBC Distribution Width SD 42.7 fl (35.1-43.9); Red Blood Count 4.09 M/mm3 (4.2-5.4); White Blood Count 6.6 K/mm3 (4.4-11.0)
[2024-10-23 13:23] LABS: AST(SGOT) 18 U/L (<=31); Alanine Aminotransfer ALT/SGPT 13 U/L (<=34); Albumin, Serum 4.2 g/dL (3.5-5.0); Alkaline Phosphatase 52 U/L (35-104); Anion Gap 12 (5-15); BUN 9 mg/dL (4-19); BUN/Creat Ratio 11.9 RATIO (10-20); Calcium,Total 9.0 mg/dL (7.6-11.0); Carbon Dioxide 21.7 mmol/L (21.0-32.0); Chloride 104 mmol/L (98-108); Ferritin 68 ng/mL (22-378); Globulin 2.9 g/dL (2.2-4.2); Glucose 93 mg/dL (70-99); Potassium 3.6 mmol/L (3.3-5.1); Vitamin B12 754 pg/mL (180-914); Vitamin D,25 Hydroxy 22.1 ng/mL (30-100)
[2024-10-23 13:43] LABS: Iron 175 ug/dL (50-170); Iron Binding Capacity,Total 298 ug/dL (250-450); Iron Binding Capacity,Unsat 123 ug/dL (228-428)
== END | disposition home or self-care (01) ==
LOC: VSLAB 10:05
PROVIDERS: PCP Nurse Practitioner Family; Visit Provider Nurse Practitioner Family
DX: Z13.1 Encounter for screening for diabetes mellitus (principal); R53.83 Other fatigue
CPT/HCPCS: 36415; 80053; 82306; 82607; 82728; 83036; 83540; 83550; 84439; 84443; 85025

== ENCOUNTER → 2024-11-14 | Outpatient (CLI) | payer BC, SELFPAY ==
[2024-11-14 15:14] LABS: Hematocrit 39.0 % (37-47); Hemoglobin 12.9 g/dL (12.0-15.0); Immature Granulocytes Count 0.010 X10^3/uL (0.0-0.0); Mean Corp Hgb Conc 33.1 g/dL (32-36); Mean Corpuscular Volume 93.1 fL (81-99); Mean Platelet Vol. 11.0 fl (6.2-12.0); NRBC Flagged by Analyzer 0 % (0-5); Platelet Count 241 K/mm3 (150-450); RBC Distribution Width CV 12.4 % (11.6-14.6); RBC Distribution Width SD 42.7 fl (35.1-43.9); Red Blood Count 4.19 M/mm3 (4.2-5.4); White Blood Count 6.8 K/mm3 (4.4-11.0)
[2024-11-14 16:22] LABS: Ferritin 42 ng/mL (22-378); Iron 105 ug/dL (50-170); Iron Binding Capacity,Total 300 ug/dL (250-450); Iron Binding Capacity,Unsat 195 ug/dL (228-428)
== END | disposition home or self-care (01) ==
LOC: MTLAB 11:52
PROVIDERS: PCP Nurse Practitioner Family; Referring Provider Nurse Practitioner Family; Visit Provider Nurse Practitioner Family
DX: R89.9 Unspecified abnormal finding in specimens from other organs, systems and tissues (principal)
CPT/HCPCS: 36415; 82728; 83540; 83550; 85025